=== PATIENT | male | born 1950 | race Caucasian/White ===

== ENCOUNTER → 2019-06-06 | Outpatient (CLI) | payer BC, OTHER ==
[~2019-06-06] MED LIST: REGADENOSON 0.4 MG/5 ML DISP.SYRIN. IV ONE
--- NOTE | 2019-06-06 12:02 | PCVCIMAG ---
APPROVED REPORT Study performed: 06/06/2019 08:29:37 EXAM: Comprehensive 2D, Doppler, and color-flow Echocardiogram Patient Location: Echo lab Room #: 2Status: routine BSA: 2.30 HR: 76 bpmBP: 142/80 mmHg Rhythm: NSR Risk Factors: Cardiac Risk Factors: HTN, Hyperlipidemia Indications Dyspnea Hypertension/HDD 2D Dimensions IVSd: 13.54 (7-11mm)LVOT Diam: 19.63 (18-24mm) LVDd: 41.36 mm PWd: 12.00 (7-11mm)Ascending Ao: 32.02 (22-36mm) LVDs: 24.36 (25-40mm) Left Atrium: 25.37 (27-40mm) Aortic Root: 30.61 mm LV Single Plane 4CH: 56.59 % LV Single Plane 2CH: 55.37 % Biplane EF: 54.3 % Volumes Left Atrial Volume (Systole) Single Plane 4CH: 72.42 mLSingle Plane 2CH: 57.45 mL Aortic Valve AoV Peak Harpreet.: 1.35 m/s AO Peak Gr.: 7.32 mmHgLVOT Max P.35 mmHg LVOT Max V: 1.04 m/s GHANSHYAM Vmax: 2.33 cm2 Mitral Valve E/A Ratio: 0.5 MV Decel. Time: 264.56 ms MV E Max Harpreet.: 0.42 m/s MV A Harpreet.: 0.86 m/s IVRT: 138.41 ms Pulmonary Valve PV Peak Harpreet.: 0.92 m/sPV Peak Gr.: 3.40 mmHg Pulmonary Vein P Vein S: 0.60 m/sP Vein A: 0.37 m/s P Vein D: 0.53 m/sP Vein A Dur.: 117.6 msec P Vein S/D Ratio: 1.13 Tricuspid Valve TV Vmax: 0.41 m/s Left Ventricle The left ventricle is normal size. There is normal LV segmental wall motion. Mild concentric left ventricular hypertrophy. Left ventricular systolic function is normal. The left ventricular ejection fraction is within the normal range. LVEF is 55-60%. Grade I - abnormal relaxation pattern. Right Ventricle The right ventricle is normal size. The right ventricular systolic function is normal. Atria The left atrium size is normal. The right atrium size is normal. Aortic Valve The aortic valve is normal in structure. No aortic regurgitation is present. There is no aortic valvular stenosis. Mitral Valve The mitral valve is normal in structure. There is no mitral valve regurgitation noted. No evidence of mitral valve stenosis. Tricuspid Valve The tricuspid valve is normal in structure. Trace tricuspid regurgitation. Pulmonic Valve The pulmonary valve is normal in structure. There is no pulmonic valvular regurgitation. Great Vessels The aortic root is normal in size. The ascending aorta is normal in size. Aortic arch is normal in caliber. IVC is normal in size and collapses >50% with inspiration. Pericardium There is no pericardial effusion. There is no pleural effusion. <Conclusion> The left ventricle is normal size. Mild concentric left ventricular hypertrophy. Left ventricular systolic function is normal. Grade I - abnormal relaxation pattern. The right ventricle is normal size. The left atrium size is normal. The aortic valve is normal in structure. There is no mitral valve regurgitation noted. Trace tricuspid regurgitation.
--- NOTE | 2019-06-06 13:01 | PCVCIMAG ---
APPROVED REPORT Imaging Protocol: Rest Tc-99m/Stress Tc-99m 1 day Study performed: 06/06/2019 10:49:27 Indication: Abnormal EKG, Dyspnea Patient Location: Out-Patient Stress Nurse: Marilee Almonte RN PA Tech:Maddie UriosteguiBERNARDOMT Ht: 6 ft 0 in Wt: 239 lbs BSA: 2.30 m2 HR: 58 bpm BP: 200/100 mmHg BMI: 32.41 Rhythm: Sinus Bradycardia wtih nonspecific ST-T abnormalities Medical History Medical History: HTN, Hyperlipidemia Medications: ASA, Losartan, Lovastatin, Bstolic Allergies: No known drug allergies Cardiac Risk Factors: Age Pretest Chest Pain Characteristics: No chest pain Exercise History: Sedentary Meds Held (24 hrs): Bystolic Resting Data Rest SPECT myocardial perfusion imaging was performed in supine position 45 minutes following the intravenous injection of 11.1 mCi of Tc-99m Sestamibi. Time of rest injection: 1000 Administration Route: IV Administration Site: Right Arm Pharmacologic Stress Pharmacologic stress test was performed by injecting Regadenoson 0.4 mg IV push over 10-15 seconds immediately followed by the intravenous injection of 31.8 mCi of Tc-99m Sestamibi. Time of stress injection: 1130 Administration Route: IV Administration Site: Right Arm Gated Stress SPECT was performed 45 minutes after stress injection. The images were gated to evaluate regional wall motion and calculate left ventricular ejection fraction. Stress Test Details Stress Test: Pharmacologic stress testing performed using 0.4 mg of regadenoson per 5 mL given IV over 10 seconds. Reason for pharmacologic stress test: physical limitation. HRMax Heart Rate (APMHR): 152 bpm Resting HR: 58 bpmTarget HR (85% APMHR): 129 bpm Max HR Achieved: 87 bpm % of APMHR: 57 Recovery HR: 71 bpm BP Resting BP: 200/100 mmHg Max BP: 201/110 mmHg Recovery BP: 186/116 mmHg ECG Resting ECG: Sinus Bradycardia wtih nonspecific ST-T abnormalities Stress ECG: Sinus Rhythm, nonspecific ST-T abnormalities ST Change: Non-ischemic Arrhythmia: None Recovery ECG: Sinus Rhythm, nonspecific ST-T abnormalities Clinical Reason for Termination: Completed protocol Stress Symptoms: Nausea Symptoms resolved with caffeine. Study Quality Study: Good Artifact: Moderate Diaphragmatic artifact Study Data Post stress, the left ventricular ejection was 62%.. SSS: 0 SRS: 1 SDS: 0 TID = 0.89. Perfusion There is a medium area of moderately reduced uptake in the basal and mid segment of the inferior wall which is seen on the stress images as well as the resting images. This area thickens and moves normally and is most consistent with attenuation artifact. Wall Motion Normal left ventricular wall motion. Nuclear Conclusion ECG Findings: negative for ischemia Clinical Findings: non-diagnostic Nuclear Findings: negative for ischemia Exercise Capacity: not assessed Left Ventricular Function: normal This study is of low probability for inducible ischemia or prior infarct. Normal global and segmental LV systolic function. Artifact: Moderate Diaphragmatic artifact
== END | disposition home or self-care (01) ==
LOC: PCVCIMAG 08:23
PROVIDERS: ATTEND Internal Medicine Cardiovascular Disease
DX: R94.31 Abnormal electrocardiogram [ECG] [EKG] (principal); R06.00 Dyspnea, unspecified; I11.9 Hypertensive heart disease without heart failure
CPT/HCPCS: 78452; 93017; 93306; A9500; J2785